=== PATIENT | female | born 1980 | race Caucasian/White ===

== ENCOUNTER 2019-12-26 12:15 | Emergency (ER) | payer MEDICAID ==
[~2019-12-26] VITALS: Ht 152.4 cm; Wt 60.8 kg
[~2019-12-26 12:15] MED LIST: CARI250T PO; SERT-153 PO; SOLI5TAB6 PO
[2019-12-26 13:54] LABS: BASOPHILS % (AUTO) 0.7 % (0-1); EOSINOPHILS # (AUTO) 0.3 X10'3 (0-0.9); EOSINOPHILS % (AUTO) 4.9 % (0-6); HEMATOCRIT 41.4 % (35.0-45.0); HEMOGLOBIN 13.7 g/dl (12.0-16.0); LYMPHOCYTES % (AUTO) 30.6 % (21-51); MEAN CORPUSCULAR HEMOGLOBIN 31.7 PG (27.0-31.0); MEAN CORPUSCULAR HGB CONC 33.1 g/dL (33.0-36.5); MEAN CORPUSCULAR VOLUME 95.8 FL (78-98); MEAN PLATELET VOLUME 8.7 FL (7.4-10.4); MONOCYTES # (AUTO) 0.4 X10'3 (0-0.9); MONOCYTES % (AUTO) 6.4 % (2-12); NEUTROPHILS # (AUTO) 3.8 X10'3 (1.8-7.7); NEUTROPHILS % (AUTO) 57.4 % (42-75); PLATELET COUNT 185 X10'3 (140-440); RED BLOOD COUNT 4.33 X10'6 (4.20-5.60); RED CELL DISTRIBUTION WIDTH 14.3 % (11.5-14.5); WHITE BLOOD COUNT 6.6 X10'3 (4.5-11.0)
[2019-12-26 14:09] LABS: ALANINE AMINOTRANSFERASE 19 U/L (12-78); ALBUMIN 3.7 G/DL (3.4-5.0); ALKALINE PHOSPHATASE 42 IU/L (46-116); ANION GAP 10 (8-16); ASPARTATE AMINO TRANSFERASE 15 U/L (10-37); BILIRUBIN,TOTAL 0.4 MG/DL (0.1-1.0); BLOOD UREA NITROGEN 15 MG/DL (7-18); BUN/CREATININE RATIO 16.1 (6.6-38.0); CALCIUM 8.9 MG/DL (8.5-10.1); CHLORIDE 105 MMOL/L (99-107); CREATININE 0.93 MG/DL (0.40-0.90); GLUCOSE 76 MG/DL (70-104); LIPASE 268 U/L (73-393); POTASSIUM 3.9 MMOL/L (3.5-5.1); SODIUM 137 MMOL/L (135-145); TOTAL CARBON DIOXIDE 22.4 MMOL/L (24-32); TOTAL PROTEIN 7.4 G/DL (6.4-8.2); eGFR 68 ML/MIN
[2019-12-26] MEDS ORDERED: ketorolac trometh inj. 60 MG/2 ML VIAL IM ONE (16:35)
[2019-12-26] MEDS ORDERED: acetaminophen 325mg tablet PO ONE (16:35)
[2019-12-26 16:55] LABS: URINE HCG NEGATIVE (NEG)
[2019-12-26 16:59] LABS: CLARITY,URINE CLEAR (Clear); COLOR,URINE YELLOW (Yellow); GLUCOSE, URINE NEGATIVE (Neg); KETONES,URINE NEGATIVE (Neg); LEUKOCYTE ESTERASE ,URINE NEGATIVE (Neg); NITRITES, URINE NEGATIVE (Neg); OCCULT BLOOD,URINE NEGATIVE (Neg); PROTEIN,URINE NEGATIVE (Neg); UROBILINOGEN,URINE 0.2 E.U/dL (0.2-1.0)
[2019-12-26 17:01] LABS: UA COLLECTION TYPE VOIDED
[2019-12-26] MEDS ORDERED: ONDA8TAB6 PO (17:18)
[2019-12-26] MEDS ORDERED: ACET-812 PO (17:18)
[2019-12-26] MEDS ORDERED: IBUP-1984 PO (17:18)
[2019-12-26] MEDS ORDERED: BISA-78 PO (17:40)
[2019-12-26 17:44] VITALS: BP 110/71
== END 2019-12-26 17:45 | disposition home or self-care (01) ==
LOC: ER 12:15
DX: R10.30 Lower abdominal pain, unspecified (principal); R11.0 Nausea; F17.200 Nicotine dependence, unspecified, uncomplicated; Z86.2 Personal history of diseases of the blood and blood-forming organs and certain disorders involving the immune mechanism; Z88.8 Allergy status to other drugs, medicaments and biological substances; Z88.2 Allergy status to sulfonamides; Z79.899 Other long term (current) drug therapy; Z98.51 Tubal ligation status
CPT/HCPCS: 36415; 80053; 81003; 81025; 83690; 85025; 96372; 99283; J1885

== ENCOUNTER 2021-06-14 10:28 | Outpatient (CLI) | payer MEDICAID ==
[~2021-06-14 10:28] MED LIST changes: +ACET-812 PO; +BISA-78 PO; +ONDA8TAB6 PO
== END 2021-06-14 23:59 | disposition home or self-care (01) ==
LOC: RAD 10:28
PROVIDERS: ATTEND Internal Medicine Pulmonary Disease
DX: I27.20 Pulmonary hypertension, unspecified (principal); R06.02 Shortness of breath
CPT/HCPCS: 71046; 78582; A9539; A9540